=== PATIENT | male | born 1985 | race Caucasian/White ===

== ENCOUNTER 2017-07-12 11:15 | Emergency (ER) | payer OTHER ==
[2017-07-12] MEDS: METHYLPREDNISOLONE 125 MG INJ IV (11:32)
[2017-07-12] MEDS: SOD CHLORIDE 0.9% 1,000 ML IV (11:33)
[2017-07-12] MEDS: LEVALBUTEROL (NEB) 1.25 MG/0.5 ML AMP INH (11:35)
[2017-07-12] MEDS: IPRATROPIUM (NEB) 0.5 MG/2.5 ML AMP INH (11:35)
== END 2017-07-12 14:09 | disposition home or self-care (01) ==
LOC: E/R 11:15
DX: J45.901 Unspecified asthma with (acute) exacerbation (principal)
CPT/HCPCS: 71045; 94644; 96374; 99284-25